=== PATIENT | male | born 1945 | race African-American/Black ===

== ENCOUNTER 2020-07-07 19:51 | Emergency (ER) | payer OTHER ==
[2020-07-07] MEDS ORDERED: Lorazepam 2 MG/ML VIAL ONE (20:15)
[2020-07-07 20:19] LABS: #Eosinphils 0.1 10x3/uL (0.0-0.5); #Monocytes 0.2 10x3/uL (0.0-1.1); #Neutrophils 2.5 10x3/uL (1.5-8.4); %Basophils 0.2 % (0.0-2.0); %Eosinophils 2.7 % (0.0-6.0); %Lymphocytes 35.7 % (18.0-47.0); %Monocytes 4.8 % (0.0-10.0); %Neutrophils 56.1 % (40.0-75.0); Hemoglobin 11.4 g/dL (13.5-17.5); Mean Corpuscular HGB CONC 34.8 g/dL (32.0-36.0); Mean Corpuscular Hemoglobin 29.2 pg (27.0-33.0); Mean Corpuscular Volume 84.1 fl (81.2-95.1); RBC Distribution Width 13.7 % (11.5-14.5); White Blood Cell (WBC) Count 4.4 10x3/uL (3.5-10.5)
[2020-07-07 20:20] LABS: Platelet Count 124 10x3/uL (150-450)
[2020-07-07 20:26] LABS: ALT (SGPT) 15 U/L (8-55); AST (SGOT) 15 U/L (5-34); Albumin 4.1 g/dL (3.4-4.8); Alkaline Phosphatase 61 U/L (40-110); Anion Gap 16 mmol/L (10-20); BUN (Urea Nitrogen) 24 mg/dL (8.4-25.7); Bilirubin, Total 1.1 mg/dL (0.2-1.2); Calc. Creatinine Clearance 0 mL/min (70-130); Calcium 8.8 mg/dL (7.8-10.44); Carbon Dioxide 19 mmol/L (23-31); Chloride 110 mmol/L (98-107); Globulin 2.7 g/dL (2.4-3.5); Glucose 73 mg/dL (83-110); Potassium 3.9 mmol/L (3.5-5.1); Protein, Total 6.8 g/dL (5.8-8.1); Sodium 141 mmol/L (136-145)
== END 2020-07-08 01:36 | disposition home or self-care (01) ==
LOC: CSHERS 19:51
DX: R00.2 Palpitations (principal); E78.5 Hyperlipidemia, unspecified; E78.00 Pure hypercholesterolemia, unspecified; E11.9 Type 2 diabetes mellitus without complications; I10 Essential (primary) hypertension; Z79.84 Long term (current) use of oral hypoglycemic drugs
CPT/HCPCS: 71045; 80053; 84484; 85025; 93005; 96374; J2060

== ENCOUNTER 2021-10-18 02:17 | Emergency (ER) | payer MEDICARE, OTHER ==
[2021-10-18 02:47] LABS: #Monocytes 0.2 10x3/uL (0.0-1.1); #Neutrophils 3.1 10x3/uL (1.5-8.4); %Basophils 0.2 % (0.0-2.0); %Eosinophils 0.8 % (0.0-6.0); %Lymphocytes 34.7 % (18.0-47.0); %Monocytes 4.5 % (0.0-10.0); %Neutrophils 59.4 % (40.0-75.0); Hemoglobin 9.9 g/dL (13.5-17.5); Mean Corpuscular HGB CONC 34.9 g/dL (32.0-36.0); Mean Corpuscular Hemoglobin 29.5 pg (27.0-33.0); Mean Corpuscular Volume 84.5 fl (81.2-95.1); Mean Platelet Volume 10.7 fl (7.4-10.4); Platelet Count 169 10x3/uL (150-450); RBC Distribution Width 13.8 % (11.5-14.5); Red Blood Cell (RBC) Count 3.36 10x6/uL (4.32-5.72); White Blood Cell (WBC) Count 5.3 10x3/uL (3.5-10.5)
[2021-10-18 02:59] LABS: ALT (SGPT) 7 U/L (8-55); AST (SGOT) 11 U/L (5-34); Albumin 3.7 g/dL (3.4-4.8); Alkaline Phosphatase 70 U/L (40-110); Anion Gap 13 mmol/L (10-20); BUN (Urea Nitrogen) 31 mg/dL (8.4-25.7); Calc. Creatinine Clearance 0 mL/min (70-130); Calcium 8.9 mg/dL (7.8-10.44); Carbon Dioxide 20 mmol/L (23-31); Chloride 111 mmol/L (98-107); Estimated GFR 32; Globulin 2.5 g/dL (2.4-3.5); Glucose 110 mg/dL (83-110); Protein, Total 6.2 g/dL (5.8-8.1); Sodium 140 mmol/L (136-145)
[2021-10-18 03:01] LABS: Bilirubin Neg (Negative); Blood, Urine Negative (Negative); Clarity Slightly Cloudy (Clear); Glucose, Urine (Dipstick) Normal (Negative); Ketone, Urine Negative (Negative); Leukocyte 500 (Negative); Nitrite Negative (Negative); Protein, Urine (Dipstick) Negative (Neg-Trace); Urobilinogen Normal mg/dL (Less than 2)
[2021-10-18 03:16] LABS: Bacteria/HPF 2+ HPF (None Seen); RBC/HPF 0-3 HPF (0-3); Squamous Epithelial 0-3 HPF (0-3); WBC/HPF 21-50 HPF (0-3)
[2021-10-18] MEDS ORDERED: Iopamidol 300 61% 100 ML VIAL FS ONE (12:45)
== END 2021-10-18 07:33 | disposition home or self-care (01) ==
LOC: CSHERS 02:17
DX: N30.00 Acute cystitis without hematuria (principal); K59.00 Constipation, unspecified; N40.0 Benign prostatic hyperplasia without lower urinary tract symptoms; I10 Essential (primary) hypertension; E78.5 Hyperlipidemia, unspecified
CPT/HCPCS: 74177; 80053; 81003; 81015; 83690; 85025; 87077; 87086; Q9967

== ENCOUNTER 2022-12-26 18:21 | Inpatient (IN) | payer OTHER, MEDICARE ==
[2022-12-26] MEDS ORDERED: Morphine 4 MG/ML VIAL ONE (18:52)
[2022-12-26] MEDS ORDERED: cefTRIAXone (ROCEPHIN) 500 MG VIAL ONE (18:53)
[2022-12-26] MEDS ORDERED: Sterile Water 10 ML ONE (18:53)
[2022-12-26] MEDS ORDERED: Ondansetron PF 4 MG/2 ML Vial ONE (18:53)
[2022-12-26] MEDS ORDERED: Doxycycline 100 MG CAP PO SCH (19:15)
[2022-12-26 19:40] LABS: Bilirubin Neg (Negative); Blood, Urine 250 (Negative); Clarity Cloudy (Clear); Glucose, Urine (Dipstick) Normal (Negative); Ketone, Urine Negative (Negative); Leukocyte 500 (Negative); Nitrite Negative (Negative); Protein, Urine (Dipstick) 100 mg/dl (Neg-Trace); Urobilinogen Normal mg/dL (Less than 2)
[2022-12-26 19:44] LABS: Hematocrit 27.2 % (38.8-50.0); Hemoglobin 9.4 g/dL (13.5-17.5); Mean Corpuscular HGB CONC 34.6 g/dL (32.0-36.0); Mean Corpuscular Hemoglobin 28.9 pg (27.0-33.0); Mean Corpuscular Volume 83.7 fl (81.2-95.1); Mean Platelet Volume 12.7 fl (7.4-10.4); Platelet Count 188 10x3/uL (150-450); RBC Distribution Width 15.4 % (11.5-14.5); Red Blood Cell (RBC) Count 3.25 10x6/uL (4.32-5.72); White Blood Cell (WBC) Count 8.3 10x3/uL (3.5-10.5)
[2022-12-26 19:51] LABS: PTT 28.7 sec (22.0-33.0); Prothrombin Time 11.2 sec (9.5-12.1)
[2022-12-26 19:56] LABS: ALT (SGPT) 11 U/L (8-55); AST (SGOT) 11 U/L (5-34); Albumin 3.7 g/dL (3.4-4.8); Alkaline Phosphatase 51 U/L (40-110); Anion Gap 20 mmol/L (10-20); BUN (Urea Nitrogen) 96 mg/dL (8.4-25.7); Bilirubin, Total 1.1 mg/dL (0.2-1.2); Calc. Creatinine Clearance 0 mL/min (70-130); Calcium 8.3 mg/dL (7.8-10.44); Carbon Dioxide 15 mmol/L (23-31); Chloride 103 mmol/L (98-107); Estimated GFR 8; Globulin 3.2 g/dL (2.4-3.5); Glucose 190 mg/dL (83-110); Lipase 67 U/L (8-78); Magnesium 1.9 mg/dL (1.6-2.6); Potassium 4.7 mmol/L (3.5-5.1); Protein, Total 6.9 g/dL (5.8-8.1); Sodium 133 mmol/L (136-145)
[2022-12-26 20:02] LABS: CAUTI Indications for Culture Dysuria,urgency,freq; WBC/HPF Greater Than 50 HPF (0-3)
[2022-12-26 20:02] LABS: Troponin I 0.019 ng/mL (< 0.028)
[2022-12-26 20:03] LABS: Bacteria/HPF 4+ HPF (None Seen); Squamous Epithelial None Seen HPF (0-3)
[2022-12-26 20:04] LABS: Urine Culture Reflex Yes Yes
[2022-12-26 20:27] LABS: MDiff Complete? YES
[2022-12-26 20:42] LABS: Band 4 % (5-11); Lymphocytes 19 % (21-51); Monocytes 2 % (0-10); Neutrophil 75 % (42-75)
[2022-12-26 20:47] LABS: Hypochromia SLIGHT = 6-15 cells (100X) (0-5/hpf)
[2022-12-26 20:48] LABS: Schistocytes SLIGHT = 2-5 cells (100X) (0-1/hpf)
[2022-12-26 20:49] LABS: Anisocytosis SLIGHT = 6-15 cells (100X) (0-5/hpf); Platelet Adequacy Comment Appears Adequate
[2022-12-26] MEDS ORDERED: cefTRIAXone (ROCEPHIN) 1 GM VIAL ONE (20:58)
[2022-12-26] MEDS ORDERED: Morphine 4 MG/ML VIAL SLOW IVP PRN (21:31)
[2022-12-26] MEDS ORDERED: HYDROcodone/Acetaminophen 5/325 mg Tablet PO PRN (21:31)
[2022-12-26] MEDS ORDERED: Dextrose 5% in Water 1,000 ML IV PRN (21:36)
[2022-12-26] MEDS ORDERED: Dextrose 50% Abboject 50 ML SYRINGE SLOW IVP PRN (21:36)
[2022-12-26] MEDS ORDERED: Glucagon 1 MG/ML KIT IM PRN (21:36)
[2022-12-26] MEDS ORDERED: Tamsulosin HCl 0.4 MG CAP PO SCH (21:45)
[2022-12-26] MEDS: Sodium Chloride 0.9% 1,000 ML IV SCH (22:13)
[2022-12-26 22:26] VITALS: BMI 23.1
[2022-12-27 04:16] LABS: Anion Gap 18 mmol/L (10-20); BUN (Urea Nitrogen) 95 mg/dL (8.4-25.7); Calc. Creatinine Clearance 11 mL/min (70-130); Calcium 8.1 mg/dL (7.8-10.44); Carbon Dioxide 15 mmol/L (23-31); Chloride 104 mmol/L (98-107); Estimated GFR 8; Glucose 216 mg/dL (83-110); Magnesium 1.8 mg/dL (1.6-2.6); Potassium 4.6 mmol/L (3.5-5.1); Sodium 132 mmol/L (136-145)
[2022-12-27 04:40] LABS: Ferritin 553.83 ng/mL (22-322)
[2022-12-27 05:02] LABS: Hematocrit 23.3 % (38.8-50.0); Mean Corpuscular HGB CONC 34.3 g/dL (32.0-36.0); Mean Corpuscular Hemoglobin 28.8 pg (27.0-33.0); Mean Corpuscular Volume 83.8 fl (81.2-95.1); Mean Platelet Volume 12.6 fl (7.4-10.4); Platelet Count 134 10x3/uL (150-450); RBC Distribution Width 15.4 % (11.5-14.5); Red Blood Cell (RBC) Count 2.78 10x6/uL (4.32-5.72); White Blood Cell (WBC) Count 6.5 10x3/uL (3.5-10.5)
[2022-12-27 05:41] LABS: MDiff Complete? YES
[2022-12-27 05:59] LABS: Platelet Adequacy Comment Appears Decreased; RBC Morph Comment Within Normal Limits
[2022-12-27 06:02] LABS: Band 6 % (5-11); Lymphocytes 10 % (21-51); Monocytes 8 % (0-10); Neutrophil 76 % (42-75)
[2022-12-27] MEDS: HumaLOG 300 UNITS/3 ML VIAL SC PRN ×3 (07:00→21:21)
[2022-12-27] MEDS: Heparin 5,000 UNITS/ML VIAL SC SCH ×3 (08:54→21:17)
[2022-12-27] MEDS: Sodium Chloride 0.9% 1,000 ML IV SCH ×2 (08:57→18:02)
[2022-12-27] MEDS ORDERED: cefTRIAXone\\ROCEPHIN 1 GM in Sodium Chloride 0.9% 100 ML IVPB SCH (09:00)
[2022-12-27] MEDS ORDERED: FLU VACC QS2023(65UP)/MF59C/PF 60 MCG/0.5 ML SYRINGE IM ONE (09:00)
[2022-12-27 16:33] LABS: Chlam.trachomatis by PCR,Urine Not Detected (NotDetected); GC N.gonorrhoeae PCR,UrineVOID Not Detected (NotDetected)
[2022-12-27] MEDS ORDERED: Tamsulosin HCl 0.4 MG CAP PO SCH (21:00)
[2022-12-27] MEDS: Tamsulosin HCl 0.4 MG CAP PO SCH (21:15)
[2022-12-27] MEDS: Sodium Bicarbonate Tab 325 MG TAB PO SCH (21:15)
[2022-12-27] MEDS: Cefepime 1 GM in Sodium Chloride 0.9% 100 ML IVPB SCH (23:39)
[2022-12-28 03:53] LABS: #Eosinphils 0.1 10x3/uL (0.0-0.5); #Monocytes 0.3 10x3/uL (0.0-1.1); #Neutrophils 3.8 10x3/uL (1.5-8.4); %Eosinophils 1.4 % (0.0-6.0); %Lymphocytes 14.3 % (18.0-47.0); %Monocytes 5.1 % (0.0-10.0); %Neutrophils 78.4 % (40.0-75.0); Hematocrit 20.4 % (38.8-50.0); Hemoglobin 7.1 g/dL (13.5-17.5); Mean Corpuscular HGB CONC 34.8 g/dL (32.0-36.0); Mean Corpuscular Volume 83.3 fl (81.2-95.1); Mean Platelet Volume 12.6 fl (7.4-10.4); Platelet Count 140 10x3/uL (150-450); RBC Distribution Width 15.3 % (11.5-14.5); Red Blood Cell (RBC) Count 2.45 10x6/uL (4.32-5.72); White Blood Cell (WBC) Count 4.9 10x3/uL (3.5-10.5)
[2022-12-28 04:21] LABS: Albumin 2.5 g/dL (3.4-4.8); Anion Gap 15 mmol/L (10-20); BUN (Urea Nitrogen) 94 mg/dL (8.4-25.7); BUN/Creatinine Ratio 15.77; Calc. Creatinine Clearance 12 mL/min (70-130); Calcium 7.7 mg/dL (7.8-10.44); Carbon Dioxide 13 mmol/L (23-31); Chloride 107 mmol/L (98-107); Estimated GFR 9; Glucose 174 mg/dL (83-110); Phosphorus 4.6 mg/dL (2.3-4.7); Potassium 4.5 mmol/L (3.5-5.1); Sodium 130 mmol/L (136-145)
[2022-12-28] MEDS: HumaLOG 300 UNITS/3 ML VIAL SC PRN ×3 (05:27→23:51)
[2022-12-28] MEDS: Sodium Chloride 0.9% 1,000 ML IV SCH ×3 (05:31→23:22)
[2022-12-28] MEDS: Heparin 5,000 UNITS/ML VIAL SC SCH ×3 (09:26→23:28)
[2022-12-28] MEDS: Sodium Bicarbonate Tab 325 MG TAB PO SCH ×2 (09:27→23:21)
[2022-12-28] MEDS: Cefepime 1 GM in Sodium Chloride 0.9% 100 ML IVPB SCH ×2 (13:00→23:21)
[2022-12-28] MEDS ORDERED: EPOETIN ALFA-EPBX (ESRD) 4,000 UNITS/ML VIAL SC SCH (20:00)
[2022-12-28] MEDS: Tamsulosin HCl 0.4 MG CAP PO SCH (23:21)
[2022-12-29 04:35] LABS: #Eosinphils 0.1 10x3/uL (0.0-0.5); #Monocytes 0.3 10x3/uL (0.0-1.1); #Neutrophils 3.2 10x3/uL (1.5-8.4); %Basophils 0.2 % (0.0-2.0); %Eosinophils 2.7 % (0.0-6.0); %Monocytes 6.1 % (0.0-10.0); %Neutrophils 72.3 % (40.0-75.0); Hematocrit 22.7 % (38.8-50.0); Hemoglobin 7.6 g/dL (13.5-17.5); Mean Corpuscular HGB CONC 33.5 g/dL (32.0-36.0); Mean Corpuscular Hemoglobin 28.4 pg (27.0-33.0); Mean Corpuscular Volume 84.7 fl (81.2-95.1); Mean Platelet Volume 11.5 fl (7.4-10.4); Platelet Count 159 10x3/uL (150-450); RBC Distribution Width 15.6 % (11.5-14.5); Red Blood Cell (RBC) Count 2.68 10x6/uL (4.32-5.72); White Blood Cell (WBC) Count 4.5 10x3/uL (3.5-10.5)
[2022-12-29 05:07] LABS: Anion Gap 13 mmol/L (10-20); BUN (Urea Nitrogen) 87 mg/dL (8.4-25.7); Calc. Creatinine Clearance 14 mL/min (70-130); Calcium 7.8 mg/dL (7.8-10.44); Carbon Dioxide 14 mmol/L (23-31); Chloride 109 mmol/L (98-107); Estimated GFR 11; Glucose 216 mg/dL (83-110); Potassium 4.4 mmol/L (3.5-5.1); Sodium 132 mmol/L (136-145)
[2022-12-29] MEDS: HumaLOG 300 UNITS/3 ML VIAL SC PRN ×2 (06:43→12:34)
[2022-12-29] MEDS: Sodium Bicarbonate Tab 325 MG TAB PO SCH ×4 (08:39→22:12)
[2022-12-29] MEDS: Ferrous Sulfate 325 MG TAB PO SCH ×2 (08:39→16:44)
[2022-12-29] MEDS: Sodium Chloride 0.9% 1,000 ML IV SCH ×2 (08:49→23:47)
[2022-12-29] MEDS: Heparin 5,000 UNITS/ML VIAL SC SCH ×3 (08:58→22:12)
[2022-12-29] MEDS: Calcitriol 0.25 MCG CAP PO SCH (08:58)
[2022-12-29] MEDS: Cefepime 1 GM in Sodium Chloride 0.9% 100 ML IVPB SCH (12:42)
[2022-12-29] MEDS: cefTRIAXone\\ROCEPHIN 1 GM in Sodium Chloride 0.9% 100 ML IVPB SCH (22:00)
[2022-12-29] MEDS: Tamsulosin HCl 0.4 MG CAP PO SCH (22:11)
[2022-12-30 05:12] LABS: #Eosinphils 0.2 10x3/uL (0.0-0.5); #Monocytes 0.2 10x3/uL (0.0-1.1); #Neutrophils 2.6 10x3/uL (1.5-8.4); %Basophils 0.3 % (0.0-2.0); %Eosinophils 3.9 % (0.0-6.0); %Lymphocytes 21.3 % (18.0-47.0); %Monocytes 5.8 % (0.0-10.0); %Neutrophils 67.9 % (40.0-75.0); Hematocrit 23.2 % (38.8-50.0); Hemoglobin 7.9 g/dL (13.5-17.5); Mean Corpuscular HGB CONC 34.1 g/dL (32.0-36.0); Mean Corpuscular Hemoglobin 28.8 pg (27.0-33.0); Mean Corpuscular Volume 84.7 fl (81.2-95.1); Mean Platelet Volume 12.1 fl (7.4-10.4); Platelet Count 175 10x3/uL (150-450); RBC Distribution Width 15.8 % (11.5-14.5); Red Blood Cell (RBC) Count 2.74 10x6/uL (4.32-5.72); White Blood Cell (WBC) Count 3.8 10x3/uL (3.5-10.5)
[2022-12-30 05:22] LABS: Anion Gap 12 mmol/L (10-20); BUN (Urea Nitrogen) 73 mg/dL (8.4-25.7); Calc. Creatinine Clearance 18 mL/min (70-130); Calcium 7.9 mg/dL (7.8-10.44); Carbon Dioxide 15 mmol/L (23-31); Chloride 110 mmol/L (98-107); Estimated GFR 14; Glucose 290 mg/dL (83-110); Potassium 4.5 mmol/L (3.5-5.1); Sodium 132 mmol/L (136-145)
[2022-12-30] MEDS: HumaLOG 300 UNITS/3 ML VIAL SC PRN ×3 (06:37→21:50)
[2022-12-30] MEDS: Sodium Chloride 0.9% 1,000 ML IV SCH ×2 (06:41→16:21)
[2022-12-30] MEDS: Calcitriol 0.25 MCG CAP PO SCH (08:58)
[2022-12-30] MEDS: Ferrous Sulfate 325 MG TAB PO SCH ×2 (08:58→16:43)
[2022-12-30] MEDS: Heparin 5,000 UNITS/ML VIAL SC SCH ×3 (08:58→21:50)
[2022-12-30] MEDS: Sodium Bicarbonate Tab 325 MG TAB PO SCH ×3 (08:58→21:49)
[2022-12-30] MEDS: Tamsulosin HCl 0.4 MG CAP PO SCH (21:49)
[2022-12-30] MEDS: cefTRIAXone\\ROCEPHIN 1 GM in Sodium Chloride 0.9% 100 ML IVPB SCH (21:49)
[2022-12-31] MEDS: Sodium Chloride 0.9% 1,000 ML IV SCH ×3 (01:32→21:54)
[2022-12-31 05:46] LABS: #Eosinphils 0.2 10x3/uL (0.0-0.5); #Monocytes 0.2 10x3/uL (0.0-1.1); #Neutrophils 2.6 10x3/uL (1.5-8.4); %Basophils 0.2 % (0.0-2.0); %Eosinophils 4.6 % (0.0-6.0); %Lymphocytes 24.6 % (18.0-47.0); %Monocytes 5.4 % (0.0-10.0); %Neutrophils 64.5 % (40.0-75.0); Hematocrit 20.8 % (38.8-50.0); Mean Corpuscular HGB CONC 33.7 g/dL (32.0-36.0); Mean Corpuscular Hemoglobin 28.5 pg (27.0-33.0); Mean Corpuscular Volume 84.6 fl (81.2-95.1); Mean Platelet Volume 10.8 fl (7.4-10.4); Platelet Count 232 10x3/uL (150-450); RBC Distribution Width 15.9 % (11.5-14.5); Red Blood Cell (RBC) Count 2.46 10x6/uL (4.32-5.72); White Blood Cell (WBC) Count 4.1 10x3/uL (3.5-10.5)
[2022-12-31 05:55] LABS: Anion Gap 13 mmol/L (10-20); BUN (Urea Nitrogen) 60 mg/dL (8.4-25.7); Calc. Creatinine Clearance 21 mL/min (70-130); Calcium 7.9 mg/dL (7.8-10.44); Carbon Dioxide 16 mmol/L (23-31); Chloride 111 mmol/L (98-107); Estimated GFR 17; Glucose 231 mg/dL (83-110); Potassium 4.9 mmol/L (3.5-5.1); Sodium 135 mmol/L (136-145)
[2022-12-31] MEDS: HumaLOG 300 UNITS/3 ML VIAL SC PRN ×3 (06:20→22:53)
[2022-12-31] MEDS: Ferrous Sulfate 325 MG TAB PO SCH ×2 (09:23→17:14)
[2022-12-31] MEDS: Heparin 5,000 UNITS/ML VIAL SC SCH ×3 (09:24→21:30)
[2022-12-31] MEDS: Sodium Bicarbonate Tab 325 MG TAB PO SCH ×3 (09:24→21:30)
[2022-12-31] MEDS: Calcitriol 0.25 MCG CAP PO SCH (09:24)
[2022-12-31] MEDS: Tamsulosin HCl 0.4 MG CAP PO SCH (21:31)
[2022-12-31] MEDS: cefTRIAXone\\ROCEPHIN 1 GM in Sodium Chloride 0.9% 100 ML IVPB SCH (21:41)
[2023-01-01 05:31] LABS: #Eosinphils 0.2 10x3/uL (0.0-0.5); #Monocytes 0.2 10x3/uL (0.0-1.1); #Neutrophils 3.4 10x3/uL (1.5-8.4); %Basophils 0.2 % (0.0-2.0); %Eosinophils 3.7 % (0.0-6.0); %Lymphocytes 21.8 % (18.0-47.0); %Monocytes 4.7 % (0.0-10.0); Hematocrit 23.2 % (38.8-50.0); Mean Corpuscular HGB CONC 34.5 g/dL (32.0-36.0); Mean Corpuscular Hemoglobin 28.9 pg (27.0-33.0); Mean Corpuscular Volume 83.8 fl (81.2-95.1); Mean Platelet Volume 10.4 fl (7.4-10.4); Platelet Count 251 10x3/uL (150-450); RBC Distribution Width 15.3 % (11.5-14.5); Red Blood Cell (RBC) Count 2.77 10x6/uL (4.32-5.72); White Blood Cell (WBC) Count 4.9 10x3/uL (3.5-10.5)
[2023-01-01 05:40] LABS: Anion Gap 14 mmol/L (10-20); BUN (Urea Nitrogen) 54 mg/dL (8.4-25.7); Calc. Creatinine Clearance 23 mL/min (70-130); Carbon Dioxide 16 mmol/L (23-31); Chloride 111 mmol/L (98-107); Potassium 4.7 mmol/L (3.5-5.1); Sodium 136 mmol/L (136-145)
[2023-01-01 05:41] LABS: ALT (SGPT) 15 U/L (8-55); AST (SGOT) 11 U/L (5-34); Albumin 2.6 g/dL (3.4-4.8); Alkaline Phosphatase 42 U/L (40-110); Bilirubin, Total 0.4 mg/dL (0.2-1.2); Calcium 8.2 mg/dL (7.8-10.44); Estimated GFR 20; Globulin 2.8 g/dL (2.4-3.5); Glucose 192 mg/dL (83-110); Magnesium 1.5 mg/dL (1.6-2.6); Protein, Total 5.4 g/dL (5.8-8.1)
[2023-01-01] MEDS: HumaLOG 300 UNITS/3 ML VIAL SC PRN ×2 (06:40→20:34)
[2023-01-01] MEDS: Heparin 5,000 UNITS/ML VIAL SC SCH ×3 (08:14→20:28)
[2023-01-01] MEDS: Ferrous Sulfate 325 MG TAB PO SCH (08:15)
[2023-01-01] MEDS: Calcitriol 0.25 MCG CAP PO SCH (08:15)
[2023-01-01] MEDS: Sodium Bicarbonate Tab 325 MG TAB PO SCH ×3 (08:15→20:24)
[2023-01-01] MEDS ORDERED: Senokot S 8.6-50 MG TAB PO SCH (12:00)
[2023-01-01] MEDS ORDERED: Polyethylene Glycol 3350 17 GM Packet PO SCH ×2 (12:00→21:00)
[2023-01-01 13:07] LABS: Bilirubin Neg (Negative); Blood, Urine 50 (Negative); Clarity Clear (Clear); Glucose, Urine (Dipstick) 250 mg/dL (Negative); Ketone, Urine Negative (Negative); Leukocyte 500 (Negative); Nitrite Negative (Negative); Protein, Urine (Dipstick) 30 mg/dl (Neg-Trace); Specific Gravity, Urine 1.005 (1.005-1.030); Urobilinogen Normal mg/dL (Less than 2); pH, Urine 6.5 (5.0-9.0)
[2023-01-01] MEDS ORDERED: Polyethylene Glycol 3350 17 GM Packet PO PRN (13:43)
[2023-01-01 13:57] LABS: Squamous Epithelial 0-3 HPF (0-3); WBC/HPF 21-50 HPF (0-3)
[2023-01-01 13:58] LABS: Bacteria/HPF 2+ HPF (None Seen)
[2023-01-01] MEDS ORDERED: Magnesium 2 GM/50 ML(in water) 2 GM in Premix Bag 1 BAG IVPB SCH (14:00)
[2023-01-01] MEDS: Sodium Chloride 0.9% 1,000 ML IV SCH (14:25)
[2023-01-01] MEDS ORDERED: Sodium Bicarbonate 100 MEQ in Sodium Chloride 0.45% 1,000 ML IV SCH (15:00)
[2023-01-01] MEDS: Sodium Bicarbonate 75 MEQ, Admixture Fee 1 EACH in Sodium Chloride 0.45% 1,000 ML IV SCH (16:17)
[2023-01-01] MEDS: cefTRIAXone\\ROCEPHIN 1 GM in Sodium Chloride 0.9% 100 ML IVPB SCH (20:22)
[2023-01-01] MEDS: Senokot S 8.6-50 MG TAB PO SCH (20:24)
[2023-01-01] MEDS: Folic Acid/Vit B Comp W-C PO SCH (20:24)
[2023-01-01] MEDS: Tamsulosin HCl 0.4 MG CAP PO SCH (20:24)
[2023-01-01] MEDS ORDERED: Bisacodyl 10 MG SUPP PR SCH (21:00)
[2023-01-01] MEDS ORDERED: Lantus 1000 UNITS/10 ML VIAL SC SCH (21:00)
[2023-01-02] MEDS: Sodium Bicarbonate 75 MEQ, Admixture Fee 1 EACH in Sodium Chloride 0.45% 1,000 ML IV SCH ×2 (03:27→21:25)
[2023-01-02 04:34] LABS: #Eosinphils 0.2 10x3/uL (0.0-0.5); #Monocytes 0.2 10x3/uL (0.0-1.1); #Neutrophils 3.9 10x3/uL (1.5-8.4); %Basophils 0.3 % (0.0-2.0); %Eosinophils 3.6 % (0.0-6.0); %Lymphocytes 24.6 % (18.0-47.0); %Monocytes 3.6 % (0.0-10.0); %Neutrophils 67.4 % (40.0-75.0); Hematocrit 23.9 % (38.8-50.0); Hemoglobin 8.2 g/dL (13.5-17.5); Mean Corpuscular HGB CONC 34.3 g/dL (32.0-36.0); Mean Corpuscular Hemoglobin 29.3 pg (27.0-33.0); Mean Corpuscular Volume 85.4 fl (81.2-95.1); Mean Platelet Volume 10.1 fl (7.4-10.4); Platelet Count 296 10x3/uL (150-450); RBC Distribution Width 15.6 % (11.5-14.5); White Blood Cell (WBC) Count 5.8 10x3/uL (3.5-10.5)
[2023-01-02 04:47] LABS: Anion Gap 11 mmol/L (10-20); BUN (Urea Nitrogen) 50 mg/dL (8.4-25.7); Calc. Creatinine Clearance 25 mL/min (70-130); Carbon Dioxide 20 mmol/L (23-31); Chloride 111 mmol/L (98-107); Estimated GFR 22; Glucose 265 mg/dL (83-110); Magnesium 1.8 mg/dL (1.6-2.6); Potassium 4.9 mmol/L (3.5-5.1); Sodium 137 mmol/L (136-145)
[2023-01-02] MEDS: HumaLOG 300 UNITS/3 ML VIAL SC PRN ×2 (06:14→17:08)
[2023-01-02] MEDS ORDERED: HumaLOG 300 UNITS/3 ML VIAL SC PRN (10:02)
[2023-01-02] MEDS ORDERED: Lantus 1000 UNITS/10 ML VIAL SC SCH (10:06)
[2023-01-02] MEDS ORDERED: Magnesium 2 GM/50 ML(in water) 2 GM in Premix Bag 1 BAG IVPB SCH ×2 (10:30→14:00)
[2023-01-02] MEDS: Senokot S 8.6-50 MG TAB PO SCH ×2 (10:45→20:29)
[2023-01-02] MEDS: Heparin 5,000 UNITS/ML VIAL SC SCH ×3 (10:45→20:28)
[2023-01-02] MEDS: Calcitriol 0.25 MCG CAP PO SCH (10:45)
[2023-01-02] MEDS: Sodium Bicarbonate Tab 325 MG TAB PO SCH ×3 (10:46→20:29)
[2023-01-02] MEDS ORDERED: Magnesium 2 GM/50 ML BAG (IN WATER) ONE (13:50)
[2023-01-02] MEDS: cefTRIAXone\\ROCEPHIN 1 GM in Sodium Chloride 0.9% 100 ML IVPB SCH (20:28)
[2023-01-02] MEDS: Tamsulosin HCl 0.4 MG CAP PO SCH (20:29)
[2023-01-02] MEDS: Folic Acid/Vit B Comp W-C PO SCH (20:29)
[2023-01-03 04:22] LABS: #Eosinphils 0.2 10x3/uL (0.0-0.5); #Monocytes 0.2 10x3/uL (0.0-1.1); #Neutrophils 4.2 10x3/uL (1.5-8.4); %Basophils 0.2 % (0.0-2.0); %Eosinophils 2.9 % (0.0-6.0); %Lymphocytes 25.9 % (18.0-47.0); %Monocytes 3.7 % (0.0-10.0); %Neutrophils 66.8 % (40.0-75.0); Hematocrit 23.6 % (38.8-50.0); Hemoglobin 8.1 g/dL (13.5-17.5); Mean Corpuscular HGB CONC 34.3 g/dL (32.0-36.0); Mean Corpuscular Hemoglobin 29.1 pg (27.0-33.0); Mean Corpuscular Volume 84.9 fl (81.2-95.1); Mean Platelet Volume 9.5 fl (7.4-10.4); Platelet Count 294 10x3/uL (150-450); RBC Distribution Width 15.6 % (11.5-14.5); Red Blood Cell (RBC) Count 2.78 10x6/uL (4.32-5.72); White Blood Cell (WBC) Count 6.3 10x3/uL (3.5-10.5)
[2023-01-03 04:35] LABS: Anion Gap 14 mmol/L (10-20); BUN (Urea Nitrogen) 48 mg/dL (8.4-25.7); Calc. Creatinine Clearance 28 mL/min (70-130); Calcium 8.3 mg/dL (7.8-10.44); Carbon Dioxide 21 mmol/L (23-31); Chloride 107 mmol/L (98-107); Estimated GFR 24; Glucose 211 mg/dL (83-110); Potassium 4.6 mmol/L (3.5-5.1); Sodium 137 mmol/L (136-145)
[2023-01-03] MEDS: Sodium Bicarbonate 75 MEQ, Admixture Fee 1 EACH in Sodium Chloride 0.45% 1,000 ML IV SCH ×3 (06:44→13:39)
[2023-01-03] MEDS: HumaLOG 300 UNITS/3 ML VIAL SC PRN ×2 (06:56→12:13)
[2023-01-03 09:20] VITALS: TEMP 98.1
[2023-01-03] MEDS: Sodium Bicarbonate Tab 325 MG TAB PO SCH (10:24)
[2023-01-03] MEDS: Heparin 5,000 UNITS/ML VIAL SC SCH (10:25)
[2023-01-03] MEDS: Senokot S 8.6-50 MG TAB PO SCH (10:25)
[2023-01-03] MEDS: Calcitriol 0.25 MCG CAP PO SCH (10:25)
[2023-01-03] MEDS ORDERED: cefTRIAXone\\ROCEPHIN 2 GM in Sodium Chloride 0.9% 100 ML IVPB SCH (11:00)
[2023-01-03 12:36] VITALS: BP 143/67
[2023-01-03] MEDS ORDERED: Lantus 1000 UNITS/10 ML VIAL SC SCH (21:00)
== END 2023-01-03 15:55 | disposition swing bed (61) | DRG 683 ==
LOC: CSHERS 18:21 → CSHTELE 20:10
PROVIDERS: ADMIT Family Medicine; ATTEND Family Medicine
PROC: 30233N1 Transfusion of Nonautologous Red Blood Cells into Peripheral Vein, Percutaneous Approach (ICD-10-PCS; principal; 2022-12-31)
DX: N17.9 Acute kidney failure, unspecified (principal); E44.0 Moderate protein-calorie malnutrition; E87.20 Acidosis, unspecified; N13.8 Other obstructive and reflux uropathy; N39.0 Urinary tract infection, site not specified; E78.5 Hyperlipidemia, unspecified; N32.89 Other specified disorders of bladder; N13.30 Unspecified hydronephrosis; N13.9 Obstructive and reflux uropathy, unspecified; N40.1 Benign prostatic hyperplasia with lower urinary tract symptoms; E11.40 Type 2 diabetes mellitus with diabetic neuropathy, unspecified; I12.9 Hypertensive chronic kidney disease with stage 1 through stage 4 chronic kidney disease, or unspecified chronic kidney disease; G47.33 Obstructive sleep apnea (adult) (pediatric); E11.22 Type 2 diabetes mellitus with diabetic chronic kidney disease; D63.1 Anemia in chronic kidney disease; B96.1 Klebsiella pneumoniae [K. pneumoniae] as the cause of diseases classified elsewhere; R33.9 Retention of urine, unspecified; N18.4 Chronic kidney disease, stage 4 (severe); E83.42 Hypomagnesemia; K59.00 Constipation, unspecified; Z68.23 Body mass index [BMI] 23.0-23.9, adult; Z79.4 Long term (current) use of insulin; Z79.84 Long term (current) use of oral hypoglycemic drugs; Z79.899 Other long term (current) drug therapy; Z98.890 Other specified postprocedural states
CPT/HCPCS: 36415; 36416; 36430; 51702; 71045; 74176; 80048; 80053; 80069; 81001; 82607; 82728; 83605; 83690; 83735; 83970; 84484; 85025; 85610; 85730; 86850; 86900; 86901; 87040; 87077; 87086; 87149; 87186; 87491; 87591; 90471; 90694; 93005; 96361; 96372; 96374; 96375; G0008; J0692; J0696; J1644; J1815; J2270; J2405; J3475; J3490; J7050; P9016; Q5105

== ENCOUNTER 2023-03-26 08:59 | Emergency (ER) | payer OTHER ==
[2023-03-26 10:41] LABS: #Eosinphils 0.1 10x3/uL (0.0-0.5); #Monocytes 0.3 10x3/uL (0.0-1.1); #Neutrophils 4.8 10x3/uL (1.5-8.4); %Basophils 0.2 % (0.0-2.0); %Eosinophils 0.8 % (0.0-6.0); %Lymphocytes 19.1 % (18.0-47.0); %Neutrophils 75.7 % (40.0-75.0); Hematocrit 33.1 % (38.8-50.0); Hemoglobin 11.3 g/dL (13.5-17.5); Mean Corpuscular HGB CONC 34.1 g/dL (32.0-36.0); Mean Corpuscular Hemoglobin 28.4 pg (27.0-33.0); Mean Corpuscular Volume 83.2 fl (81.2-95.1); Mean Platelet Volume 10.3 fl (7.4-10.4); Platelet Count 178 10x3/uL (150-450); RBC Distribution Width 14.3 % (11.5-14.5); Red Blood Cell (RBC) Count 3.98 10x6/uL (4.32-5.72); White Blood Cell (WBC) Count 6.3 10x3/uL (3.5-10.5)
[2023-03-26 10:52] LABS: ALT (SGPT) 9 U/L (8-55); AST (SGOT) 13 U/L (5-34); Albumin 4.3 g/dL (3.4-4.8); Alkaline Phosphatase 71 U/L (40-110); Anion Gap 16 mmol/L (10-20); BUN (Urea Nitrogen) 50 mg/dL (8.4-25.7); Bilirubin, Total 1.1 mg/dL (0.2-1.2); Calc. Creatinine Clearance 0 mL/min (70-130); Calcium 9.4 mg/dL (7.8-10.44); Carbon Dioxide 19 mmol/L (23-31); Chloride 110 mmol/L (98-107); Estimated GFR 19; Globulin 3.3 g/dL (2.4-3.5); Glucose 126 mg/dL (83-110); Protein, Total 7.6 g/dL (5.8-8.1); Sodium 140 mmol/L (136-145)
[2023-03-26 11:19] LABS: Bilirubin Neg (Negative); Blood, Urine 250 (Negative); Glucose, Urine (Dipstick) Normal (Negative); Ketone, Urine Negative (Negative); Leukocyte 500 (Negative); Nitrite Positive (Negative); Protein, Urine (Dipstick) 500 mg/dl (Neg-Trace); Urobilinogen Normal mg/dL (Less than 2)
[2023-03-26 11:47] LABS: Clarity Cloudy (Clear)
[2023-03-26 11:53] LABS: Bacteria/HPF 4+ HPF (None Seen); Squamous Epithelial 0-3 HPF (0-3)
[2023-03-26 11:54] LABS: CAUTI Indications for Culture Dysuria,urgency,freq; RBC/HPF 21-50 HPF (0-3); Urine Culture Reflex No No
[2023-03-26] MEDS ORDERED: cefTRIAXone (ROCEPHIN) 1 GM VIAL ONE (12:02)
== END 2023-03-26 12:23 | disposition home or self-care (01) ==
LOC: CSHERS 08:59
DX: T83.098A Other mechanical complication of other urinary catheter, initial encounter (principal); N39.0 Urinary tract infection, site not specified; E78.00 Pure hypercholesterolemia, unspecified; E11.9 Type 2 diabetes mellitus without complications; I10 Essential (primary) hypertension
CPT/HCPCS: 74176; 80053; 81001; 85025; 96374; J0696

== ENCOUNTER 2023-08-23 13:57 | Outpatient (CLI) | payer OTHER | END 2023-08-23 13:58 | disposition home or self-care (01) | LOC: CSHULT 13:57 | DX: E04.2 Nontoxic multinodular goiter (principal) | CPT/HCPCS: 76536 ==

== ENCOUNTER 2023-09-18 07:59 | Day surgery (SDC) | payer MEDICARE, OTHER ==
[2023-09-18] MEDS ORDERED: Lidocaine 1% PF 5 ML VIAL ONE (09:21)
[2023-09-18] MEDS ORDERED: Sodium Bicarbonate 2.5 MEQ/5 ML SDV ONE (09:21)
[2023-09-18 10:35] VITALS: BP 137/82; TEMP 97.6
== END 2023-09-18 10:10 | disposition home or self-care (01) ==
LOC: CSHULT 07:59
PROC: 0G9H3ZX Drainage of Right Thyroid Gland Lobe, Percutaneous Approach, Diagnostic (ICD-10-PCS; principal; 2023-09-18)
DX: E04.1 Nontoxic single thyroid nodule (principal)
CPT/HCPCS: 10005; 88173; 88305